=== PATIENT | male | born 1965 | race Caucasian/White ===

== ENCOUNTER → 2023-04-23 10:20 | Outpatient (CLI) | payer OTHER, SELFPAY ==
--- NOTE | ~2023-04-23 | MR_ITS ---
MRI of the right knee Clinical history: Pain Technique: Coronal proton density and proton density-weighted images, sagittal proton-density and T2 fat-sat images, and axial proton-density fat-saturated images were acquired. Findings: There is evidence of prior ACL reconstruction surgery. ACL graft is somewhat poorly delinea get, though probably intact. Posterior cruciate ligament is intact. Medial collateral ligament and th e lateral collateral ligament complex are intact. Popliteus tendon is intact. There is complex, predominantly horizontal tearing of the posterior horn and body of the medial menis cus. No definite lateral meniscal tear seen. There is prominent intrasubstance degenerative signal in the anterior horn of the lateral meniscus. There is patchy mild to moderate chondromalacia throughout the patellofemoral compartment. There is m ild to moderate chondromalacia over the lateral femoral condyle. Small osteophytes are present at the patellofemoral compartment and lateral joint line. Extensor mechanism is intact. Minimal joint effusion present. No Canela's cyst. Impression: Complex, predominantly horizontal tearing of the posterior horn and body of the medial meniscus. Prior ACL reconstruction surgery. ACL graft is poorly delineated, but probably intact. Jihd-uc-[id number] degenerative change of the lateral and patellofemoral compartments. Reviewed, dictated and finalized at location [facility] Impression: Complex, predominantly horizontal tearing of the posterior horn and body of the medial meniscus. Prior ACL reconstruction surgery. ACL graft is poorly delineated, but probably intact. Tbcz-iw-yaezzgsa degenerative change of the lateral and patellofemoral compartm ents.
== END ==
PROVIDERS: PCP Nurse Practitioner Family; Visit Provider Nurse Practitioner Family
DX: S83.211A Bucket-handle tear of medial meniscus, current injury, right knee, initial encounter (principal); X58.XXXA Exposure to other specified factors, initial encounter; M17.11 Unilateral primary osteoarthritis, right knee
CPT/HCPCS: 73721

== ENCOUNTER 2024-10-09 12:55 | Outpatient (CLI) | payer OTHER, SELFPAY ==
--- NOTE | ~2024-10-09 | MR_ITS ---
EXAMINATION: MR knee RT wo con DATE: 10/09/2024 14:01 INDICATION: Right knee pain TECHNIQUE: Magnetic resonance imaging (MRI) of the right knee was performed without intravenous contr ast. Sequences included coronal PD-weighted FSE, coronal PD-weighted FS FSE, sagittal T2-weighted FS E, sagittal PD-weighted FS FSE and axial PD weighted fat saturated FSE. COMPARISON: None. FINDINGS: Medial compartment: Longitudinal horizontal tear extending to the inferior articular surface of the posterior body and po sterior horn of the medial meniscus. Shallow chondral ulceration along the anterior to central weight bearing medial femoral condyle. There is a superimposed deep chondral fissure along the lateral aspec t of the central weightbearing medial femoral condyle. Additional shallow chondral ulceration along t he medial tibial plateau. Lateral compartment: Lateral meniscus is normal. Deep chondral ulceration with small central subchondral osteophytes at th e anterior to central weightbearing lateral femoral condyle. Cartilage along the lateral tibial plate au is relatively preserved. Patellofemoral compartment: Additional deep chondral ulceration with small central subchondral osteophytes at the cephalad aspect of the trochlear groove and immediately adjacent portion of the medial and lateral trochlea. Additio nal deep chondral ulceration with a few also subchondral edema-like signal change extending centrally across the lateral trochlea. Shallow chondral ulceration with deeper fissuring but without degenerat gino subchondral changes at the inferior and lateral margins of the lateral patellar facet. Ligaments and tendons: Posterior cruciate ligament is normal. There is recurrent tear of the repaired anterior cruciate liga ment with no evident graft material extending between the femoral and tibial tunnels. The medial brenda ateral ligament and fibular collateral ligament complex are normal. The extensor mechanism is normal. The visualized medial and lateral hamstring tendons as well as the iliotibial band are normal. Fluid: Small knee joint effusion at the suprapatellar pouch. No loose osteochondral bodies identified. Osseous/other: Bone alignment is normal. Small to moderate size marginal osteophytes in all 3 compartments of the kn ee. No fracture or pathologic marrow replacing process. IMPRESSION: 1. 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 2. Longitudinal horizontal tear of the posterior body and posterior horn of the medial meniscus. 3. 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 4. Small right knee joint effusion. Reviewed, dictated and finalized at [facility]. IMPRESSION: 1. Recurrent complete graft tear of a prior anterior cruciate ligament reconstr uction. 2. Longitudinal horizontal tear of the posterior body and posterior horn of the medial meniscus. 3. Mild tricompartmental osteoarthritis with extensive high-grade chondral matty barb in the patellofemoral compartment, small amount of high-grade chondral matty barb the lateral compartment and moderate grade chondral malacia the medial comp artment. 4. Small right knee joint effusion.
--- NOTE | ~2024-10-09 | MR_ITS ---
MRI of the lumbar spine Clinical History: Radiculopathy Technique: Axial T2-weighted images, and sagittal T1-weighted, T2-weighted, and T2 fat-sat images wer e acquired. Findings: There is interbody fusion at the L4-L5 disc space with associated susceptibility artifact. No acute fracture or subluxation seen. No suspicious bone marrow signal abnormality seen. At L1-L2, there is mild degenerative disc narrowing with minimal disc bulge and moderate facet arthro melchor. No central canal stenosis or neural foraminal narrowing. At L2-L3, there is mild degenerative disc narrowing with minimal disc bulge and advanced facet arthro melchor. No central canal stenosis. There is mild right neural foraminal narrowing. Left neural foramen preserved. L3-L4, there is severe degenerative disc narrowing. There is severe facet arthropathy. No central can al stenosis. There is severe right neural foraminal narrowing, and mild to moderate left neural kwame inal narrowing. At L4-L5, there is extensive susceptibility artifact with moderate facet arthropathy. No definite can al stenosis. Neural foramina are poorly evaluated. At L5-S1, there is no disc bulge or herniation. There is mild facet arthropathy. No central canal tom nosis or neural foraminal narrowing. Paravertebral soft tissues are otherwise unremarkable. Impression: Postoperative change at the L4-L5 disc space. Advanced degenerative spondylosis at L3-L4, as above. Reviewed, dictated and finalized at [facility]. Impression: Postoperative change at the L4-L5 disc space. Advanced degenerative spondylosis at L3-L4, as above.
--- OUTSIDE RECORDS SUMMARY | 2024-10-09 14:11 | XMS_ITS ---
Author Organization [facility] Address [address] [place] [address] Care Team Providers Care Kaitara Taraka Name Role Phone Lucinda nIiguezsa Primary Care Provider Jayson Jiménez Unavailable [phone] Ramila Hunt Unavailable [phone] ALLERGIES No Known Allergies RESULTS Component Value Reference Range Notes X ray : Lumbar spine 5 views , AP, Lateral, Spot, Flexion and Extension Reviewed date:11/29/2023 02:51:03 PM Interpretation:155 Performing Lab: Notes/Report: 155 REASON FOR REFERRAL Reason Eval adn Treat Lumba r Stabilization Program, Focus on HEP of lumbar and abdominal strengthening Diagnosis 1 Encounter for other specified aftercare (Z51.89) Referral Organization [facility], Referring Provider First Name Ramila Referring Provider Last Name Gilbert Referring Provider Speciality Nurse Prac titioner Referred Provider Specialty Physical The rapy Referral Priority Routine REASON FOR VISIT 2nd post op Activ-L MEDICATIONS Medication SIG (Take, Route, Frequency, Duration) Notes Start Date End Date Status Ibuprofen Unknown Ibuprofen 800 MG 1 tablet with food o r milk as needed Orally Three times a day for 30 days 09/12/2023 Not-Taking Percocet 5-325 MG 1 tablet as needed Orally every 4 hrs for 7 days 09/12/2023 Not-Taking HYDROcodone-Acetaminophen 5-325 MG 1 tablet as needed Orally every 4-6 hrs 06/22/2023 Not-Taking Aspirin Unknown Methocarbamol Unknow n Medrol 4 MG as directed Orally take as directed 05/19/2020 Unknown Tylenol Active Celecoxib 200 MG 1 capsule with food Orally Once a day for 30 day(s) 07/05/2023 Not-Taking Encounters Encounter Location Date Provider Diagnosis [facility] [address] [place] [address] 11/29/2023 Ramila Hunt Other low back pain M54.59 and Orthopedic aftercare Z47.89 ASSESSMENTS Encounter Date Diagnosis Assessment Notes Treatment Notes Treatment Clinical Notes 11/29/2023 Other low back pain (ICD-10 - M54.59) 11/29/2023 Orthopedic aftercare (ICD-10 - Z47.89) PLAN OF TREATMENT Referrals Referral Date Details Radha arvizu Treat Lumba r Stabilization Program, Focus on HEP of lumbar and abdominal strengthening Progress Notes * Examination Category Sub-Category Detail Notes X-Ray LUMBAR X-RAY: Five views of th e lumbar spine were obtained today. They demonstrate the disc arthroplasty from L4 to 5 that appears to be in good position and without any signs of subsidence Consultation Request Notes Referral Date Referring Provider Referred Provider Not es 11/29/2023 Ramila Hunt Eval adn Treat Lumbar Stabilization Program, Focus on HEP of lumbar and abdominal strengthening
--- OUTSIDE RECORDS SUMMARY | 2024-10-09 14:11 | XMS_ITS | Clinical Summary ---
Author Organization [facility] Address [address], [facility] [address] [place] [address] Phone Care Team Providers Care Seo Intern Name Role Phone Provider, Unknown Primary Care Provider Unavaila Steve Lew MD Unavailable [phone] Allergies No known active allergies Medications aspirin EC 81 MG Tablet Delayed Response Take 81 mg by mouth. Active oxyCODONE-acetam inophen (PERCOCET) 5-325 MG Tablet TAKE 1 TABLET BY MOUTH EVERY 4 HOURS NEEDED FOR 7 DAYS 09/12/2023 Active ibuprofen (MOTRIN) 800 MG Tablet TAKE 1 TABLET BY MOUTH THREE TIMES A DAY WITH FOOD OR MILK NEEDED FOR 30 DAYS 09/12/2023 Active Sennosides (SENNA LAX PO) Take by mouth. Active Active Problems No known active problems Family History Medical History Relation Name Comments Heart Disease Mother Breast Cancer Sister 2 Relation Name Status Comments Brother Alive Father Alive Mother Sister 1 Sister 2 Alive Social History Tobacco Use Types Packs/Day Years Used Date Smoking Tobacco: Never Smokeless Tobacco: Current Chew Tobacco Cessation:Ready to Q uit: Not Asked; Counseling Given: Not Answered Alcohol Use Standard Drinks/Week Comments Yes 12 (1 standard drink = 0.6 oz pu re alcohol) Sex and Gender Information Value Date Recorded Sex Assigned at Not on file Legal Sex Male 2:26 PM CDT Gender Identity Not on file Sexual Orientation Not on file Last Filed Vital Signs Vital Sign Reading Time Taken Comments Blood Pressure 142/90 03/20/2024 8:30 AM CDT Pulse 78 03/20/2024 8:30 AM CDT Temperature 36.2 C (97.1 F) 03/20/2024 8:30 AM CDT Respiratory Rate 18 03/20/2024 8:30 AM CDT Oxygen Saturation 99% 03/20/2024 8:30 AM CDT Inhaled Oxygen Concentration - - Weight 132.7 kg (292 lb 9.6 oz) 03/20/2024 8:30 AM CDT Height 188 cm (6' 2 ) 03/20/2024 8:30 AM CDT Body Mass Index 37.57 03/20/2024 8:30 AM CDT Plan of Treatment Upcoming Encounters Date Type Department Care Team (Late st Contact Info) Description 03/19/2025 8:45 AM CDT Office Visit [facility] [address] [facility] [address] [place] [address] Steve Cid MD [address] [place] [address] Health Maintenance Due Date Last Done Comments Hepatitis C Virus (HCV) Screening 1967 Hepatitis B Immunization (1 of 3 - 19+ 3-dose series) 1986 Colonoscopy 2012 Colorectal Cancer Screening 2012 Cologuard 2017 Immunochemical Fecal Occult Blood 2017 Pneumococcal Immunization (5 0+ years) (1 of 1 - PCV) 2017 PSA Discussion 2022 Influenza Immunization (#1) 2024 03/08/2020 SARS-COV-2 Immunization (2 - season) 2024 09/01/2020 Respiratory Syncytial Virus (RSV) Immunization (Adult) (1 - 1-dose 75+ series) 2042 DTaP/Tdap/Td Immunization Discontinued 11/17/2019 TdaP Immunization Completed 11/17/2019 Zoster Immunization Completed 05/10/2020, 03/08/2020 Meningococcal Immunization (ACWY) Aged Out No longer eligible based on patient's age to complete this topic Rotavirus Immunization Aged Out No lo nger eligible based on patient's age to complete this topic Insurance Care Teams Seo Intern Relationship Specialty Start Date End Date Provider, Unknown UNKNOWN PCP - General 09/20/22 Steve Cid MD [address] [place] [address] Consulting Physician Oncology 06/27/23
--- OUTSIDE RECORDS SUMMARY | 2024-10-09 14:11 | XMS_ITS | Clinical Summary ---
Author Organization [facility] Address [address] [place] [address] Care Team Providers Care Card Seller Name Role Phone Allie Madsen Roosevelt CAIN-PATHOLOGY LABORATORY AIDES TEACHER Primary Care Provider Source Comments [facility],non-owned Affiliates and Associated Physician Practices is amultiple site organization consisting of ambulatory clinics and hospital sitesin [place], [place], [place] and [place]. This disclosure is being madepursuant to the Care Everywhere program and may not contain all information available regarding this patient. Last updated 18.[facility] Allergies No known active allergies Medications * Be aware that medications may not be up to date on this document. Alwaysverify current medications with the patient. aspirin EC (Ecotrin) 81 MG tablet Take 1 (one) tablet by mouth once daily Active Active Problems No known active problems Social History Tobacco Use Types Packs/Day Years Used Date Smoking Tobacco: Former Cigarettes Q uit: 06/17/1999 Smokeless Tobacco: Current Chew Tobacco Cessation:Ready to Q uit: No; Counseling Given: No Alcohol Use Standard Drinks/Week Comments Not Currently 0 (1 standard drink = 0.6 oz pure alcohol) not since 08/2022 as of 04/26/2023 Sex and Gender Information Value Date Recorded Sex Assigned at Not on file Legal Sex Male 4:55 AM GENETIC SUPERVISOR Gender Identity Male 04/26/2023 1:36 PM GENETIC SUPERVISOR Sexual Orientation Not on file Last Filed Vital Signs Vital Sign Reading Time Taken Comments Blood Pressure - - Pulse - - Temperature - - Respiratory Rate - - Oxygen Saturation - - Inhaled Oxygen Concentration - - Weight 122.5 kg (270 lb) 10/02/2023 12:48 PM CDT Height 188 cm (6' 2 ) 10/02/2023 12:48 PM CDT Body Mass Index 34.67 10/02/2023 12:48 PM CDT Plan of Treatment Health Maintenance Due Date Last Done Comments COLOGUARD (AGES 45-75) - COL ON CA SCREENING 1967 COLON MONITORING 1967 COLONOSCOPY - COLON CA SCREENING 1967 CT COLONOGRAPHY - COLON CA SCREENING 1967 Colorectal Cancer Screening 1967 FIT - COLON CA SCREENING 1967 FLEX SIG - COLON CA SCREENING 1967 LIPID TESTING 1967 HIV SCREENING 1982 HEPATITIS C SCREENING 06/04/1985 DTAP/TDAP/TD VACCINES (1 - Tdap) 1986 HEPATITIS B VACCINE (1 of 3 - 19+ 3-dose series) 1986 PNEUMOCOCCAL VACCINE 50+ (1 of 1 - PCV) 2017 ZOSTER VACCINE (1 of 2) 2017 SCREENING FOR DIABETES 04/26/2023 COVID-19 VACCINE (2 - 2023-2 5 season) 2024 09/01/2020 DEPRESSION SCREENING 06/18/2024 INFLUENZA VACCINE (Season Ended) 2025 03/08/20 20 HIB VACCINE Aged Out No longer eligi ble based on patient's age to complete this topic HPV VACCINE Aged Out No longer eligi ble based on patient's age to complete this topic MENINGOCOCCAL (Group B) VACC INE SHARED DECISION-MAKING Aged Out No longer eligibl e based on patient's age to complete this topic MENINGOCOCCAL GROUPS A/C/Y/W VACCINE Aged Out No longer eligible b ased on patient's age to complete this topic Insurance [facility] Care Teams Card Seller Relationship Specialty Start Date End Date Allie Madsen APRN-PATHOLOGY LABORATORY AIDES TEACHER [address] [place] [address] PCP - General Nurse Practitioner 04/26/23
--- OUTSIDE RECORDS SUMMARY | 2024-10-09 14:11 | XMS_ITS | Clinical Summary ---
Author Organization [facility] Address [address] [place] [address] Care Team Providers Care Macroeconomics Professor Name Role Phone Allie Madsen SERGIO Primary Care Provider Allergies No known active allergies Medications aspirin EC (ECOTRIN) 81 MG tablet Take 1 tablet (81 mg total) by mouth daily. Active acetaminophen 500 MG tablet Take 500 mg by mouth every 6 (six) hours as needed for Pain. Active Lido-Capsaicin- Men-Methyl Tristan (VOUE-EBEQT-JEZ OCAINE) 0.5-0.035-5-20 % PatchIndication s:Closed fracture of one rib of right side, sequela Apply 1 patch topically every 12 (twelve) hours. 30 patch 0 Active Additional Information Patient not taking.Reported on 09/14/2022 rivaroxaban (XARELTO) 20 MG Tab tabletIndicatio ns:Acute deep vein thrombosis (DVT) of popliteal vein of left lower extremity (CMS/HCC HHS/HCC) Take 1 tablet (20 mg total) by mouth daily with supper. 30 tablet 1 3 Active Active Problems Problem Noted Date Diagnosed Date Arthritis of left knee 12/29/2019 Low back pain 12/17/2019 Left knee pain 12/17/2019 Tinea pedis, right 01/05/2017 Onychomycosis 01/05/2017 Resolved Problems Problem Noted Date Diagnosed Date Resolved Date Screening for deficiency anemia 01/05/2017 02/27/2020 Immunizations Immunization Administration Dates Next Due Influenza Adult (Generic) 03/08/2020 [employer] ([employer]IRA [employer] SHIRA) COVID-19 AD26 VACCINE 0.5 ML IM SUSP 09/01/2020 Shingrix 05/10/2020,03/08/2020 Tdap (Adacel) 11/17/2019 Zoster (Zostavax) 01067 Unt/0.65Ml 05/10/2020, Family History * Patient is adopted Medical History Relation Comments No Known Problems Brother No Known Problems Father No Known Problems Maternal Aunt No Known Problems Maternal Grandfather No Known Problems Maternal Grandmother No Known Problems Maternal Uncle No Known Problems Mother No Known Problems Paternal Aunt No Known Problems Paternal Grandfather No Known Problems Paternal Grandmother No Known Problems Paternal Uncle No Known Problems Sister Relation Status Comments Brother Father Maternal Aunt Maternal Grandfather Maternal Grandmother Maternal Uncle Mother Paternal Aunt Paternal Grandfather Paternal Grandmother Paternal Uncle Sister Social History Tobacco Use Types Packs/Day Years Used Date Smoking Tobacco: Never Smokeless Tobacco: Current Chew Tobacco Cessation:Ready to Q uit: No; Counseling Given: No Alcohol Use Standard Drinks/Week Comments Yes 0 (1 standard drink = 0.6 oz pur e alcohol) Sex and Gender Information Value Date Recorded Sex Assigned at Not on file Legal Sex Male 4:48 PM CDT Gender Identity Not on file Sexual Orientation Not on file Last Filed Vital Signs Vital Sign Reading Time Taken Comments Blood Pressure 130/82 09/14/2022 11:35 AM CDT ma nual Pulse 82 09/14/2022 11:06 AM CDT Temperature 36.6 C (97.8 F) 09/14/2022 11:02 AM CDT Respiratory Rate 20 09/14/2022 11:02 AM CDT Oxygen Saturation 98% 09/14/2022 11:02 AM CDT Inhaled Oxygen Concentration - - Weight 131.5 kg (290 lb) 09/14/2022 11:02 AM CDT Height 185.4 cm (6' 1 ) 09/14/2022 11:02 AM CDT Body Mass Index 38.26 09/14/2022 11:02 AM CDT Plan of Treatment Health Maintenance Due Date Last Done Comments Colorectal Cancer Screening Colonoscopy (10 Years) 1967 Annual Physical 1970 Hepatitis C 1985 Hepatitis B Vaccines (1 of 3 - 19+ 3-dose series) 1986 Pneumococcal Vaccine: 50+ Years (1 of 1 - PCV) 2017 Zoster Vaccines (3 of 3) 07/05/2020 020, 05/10/2020, 03/08/2020, Additional history exists COVID-19 Vaccine (2 - 2023- season) 2024 09/01/2020 PHQ-2 (Physician Elizabeth) 06/18/2024 DTaP, Tdap and Td Vaccines (2 - Td or Tdap) 11/16/2029 11/17/2019 Meningococcal B Vaccine Aged Out No l onger eligible based on patient's age to complete this topic Meningococcal Vaccine Aged Out No pita brandon eligible based on patient's age to complete this topic RSV Immunizations Under 20 Months Aged Out No longer eligible based on patient's age to complete this topic Insurance [facility] App Partner [employer] on file Advance Directives Documents on File Type Date Recorded Patient Commercial Fishing Vessel Operator Expl anation Legal Documents 03/28/2022 3:15 PM COMPLE KRANTHI MOTION PICTURE ACTOR REQUEST [facility] BILLING Care Teams Macroeconomics Professor Relationship Specialty Start Date End Date Allie Madsen FNP [address] [place] [id number] PCP - General Nurse Practitioner Family 06/20/23
--- OUTSIDE RECORDS SUMMARY | 2024-10-09 14:12 | XMS_ITS | Patient Health Record ---
Author Organization [facility] Address [address] [place] [address] Care Team Providers Care Chip Applying Machine Tender Name Role Phone Allie Iniguez Primary Care Provider Jayson Jiménez Unavailable [phone] Ramila Hunt Unavailable [phone] ALLERGIES No Known Allergies RESULTS Component Value [...] specified aftercare (Z51.89) Referral Organization [facility] Referring Provider First Name Ramila Referring Provider Last Name Gilbert Referring Provider Speciality Nurse Prac titioner Referred Provider Specialty Physical The rapy Referral Priority Routine MEDICATIONS Medication SIG (Take, Route, Frequency, Duration) Notes Start Date End Date Status Ibuprofen Unknown Methocarbamol Unknow n Medrol 4 MG as directed Orally take as directed 05/19/2020 Unknown Ibuprofen 800 MG 1 tablet with food o r milk as needed Orally Three times a day for 30 days 09/12/2023 Not-Taking Percocet 5-325 MG 1 tablet as needed Orally every 4 hrs for 7 days 09/12/2023 Not-Taking HYDROcodone-Acetaminophen 5-325 MG 1 tablet as needed Orally every 4-6 hrs 06/22/2023 Not-Taking Aspirin Unknown Tylenol Active Celecoxib 200 MG 1 capsule with food Orally Once a day for 30 day(s) 07/05/2023 Not-Taking PROBLEMS Problem Type ICD Code Onset Dates Problem Status W/U Status Risk SNOMED Code Notes Problem Lumbar spondylosis (M47.816) Active confirmed Lumbar spondylosis (965292262) Problem Other intervertebral disc degeneration, lumbar region (M51.36) Active confirmed Degeneration of lumbar intervertebral disc (81916621) Problem Osteoporosis (M81.0) Active confirmed Osteoporosis (94294524) Problem Degeneration of intervertebral disc of lumbosacral region (M51.37) Active confirmed Degeneration of lumbosacral intervertebral disc (71731151) Problem Herniated lumbar intervertebral disc (M51.26) Active confirmed Displacement o f lumbar intervertebral disc without myelopathy (45314179) Problem DDD (degenerative disc disease), lumbar (M51.36) Active confirmed Degenerative disc disease (03957137) Problem Other spontaneous disruption of anterior cruciate ligament of right knee (M23.611) Active confirmed Problem Orthopedic aftercare (Z47.89) Active confirmed Problem Aftercare following joint replacement (Z47.1) Active confirmed Aftercare (155553188) Problem Presence of other orthopedic joint implants (Z96.698) Active confirmed Joint implant i n situ (finding) (092440583) Encounters Encounter Location Date Provider Diagnosis [facility] [address] [address] 11/29/2023 Ramila Hunt Other low back pain M54.59 and Orthopedic aftercare Z47.89 [facility] [address] [address] 12/17/2023 Jayson Bruno ASSESSMENTS Encounter Date Diagnosis Assessment Notes Treatment Notes Treatment Clinical Notes 11/29/2023 Other low back pain (ICD-10 - M54.59) 11/29/2023 Orthopedic aftercare (ICD-10 - Z47.89) PLAN OF TREATMENT No Information Insurance Providers Payer Name Payer Address Payer Phone Subscriber Number Group Number Insured Name Patient Relationship to Insured Coverage Start Date Coverage End Date Vanesa [id number] Jese Quiroz Self - patient is the insured [facility] [id number] DARSHAN Farias [id number] Jese Quiroz Self - patient is the insured [facility] [address] [address] [place] [address] [id number] Jese Quiroz Self - patient is the insured [employer] [address] [place] [address] [id number] Jese Quiroz Self - patient is the insured 3 MEDICAL (GENERAL) HISTORY Medical History History ICD Code Arthritis Blood clot Surgical History Surgery Date(Month/Year) Left Inguinal Hernia Repair Umbilical hernia Right Knee Surgery x 2 Left CTR Left Elbow Right knee arthroscopy, part ial medial and lateral meniscectomies, synovectomy, abrasion chondroplasty - MDC 06/28/23 L4-5 Disc Arthroplasty 09/13/23 Hospitalization History Reason Date(Month/Year) As per above.
--- OUTSIDE RECORDS SUMMARY | 2024-10-09 14:12 | XMS_ITS ---
Author Organization [facility] Address [address] [facility] [address] [place] [address] Care Team Providers Care Screen Making Supervisor Name Role Phone Allie Iniguez Primary Care Provider Jayson Jiménez Unavailable [phone] REASON FOR VISIT Physical Therapy Script Encounters Encounter Location Date Provider Diagnosis [facility] [address] [facility] [address] [place] [address] 12/17/2023 Jayson Bruno PLAN OF TREATMENT No Information
--- OUTSIDE RECORDS SUMMARY | 2024-10-09 14:13 | XMS_ITS ---
Author Organization [facility] Address [address] [place] [address] Care Team Providers Care General Road Production Manager Name Role Phone Lucinda Iniguezsa Primary Care Provider Jayson Jiménez Unavailable [phone] Ramila Hunt Unavailable [phone] ALLERGIES No Known Allergies RESULTS Component Value Reference Range Notes X ray : Lumbar spine 5 views , AP, Lateral, Spot, Flexion and Extension Reviewed date:09/27/2023 02:04:41 PM Interpretation:115 Performing Lab: Notes/Report: 115 REASON FOR VISIT 1st post op Activ-l MEDICATIONS Medication SIG (Take, Route, Frequency, Duration) Notes Start Date End Date Status Medrol 4 MG as directed Orally take as directed 05/19/2020 Unknown Methocarbamol Unknow n Aspirin Unknown Ibuprofen Unknown HYDROcodone-Acetaminophen 5-325 MG 1 tablet as needed Orally every 4-6 hrs 06/22/2023 Not-Taking Celecoxib 200 MG 1 capsule with food Orally Once a day for 30 day(s) 07/05/2023 Active Ibuprofen 800 MG 1 tablet with food o r milk as needed Orally Three times a day for 30 days 09/12/2023 Active Tylenol Active Percocet 5-325 MG 1 tablet as needed Orally every 4 hrs for 7 days 09/12/2023 Not-Taking PROBLEMS Problem Type ICD Code Onset Dates Problem Status W/U Status Risk SNOMED Code Notes Problem Orthopedic aftercare (Z47.89) Active confirmed Problem Aftercare following joint replacement (Z47.1) Active confirmed Aftercare (127085134) Problem Presence of other orthopedic joint implants (Z96.698) Active confirmed Joint implant in situ (finding) (636822679) Encounters Encounter Location Date Provider Diagnosis [facility] [address] [place] [address] 09/27/2023 Ramila Mathewolivier Orthopedic aftercare Z47.89 ; Aftercare following joint replacement Z47.1 ; Presence of other orthopedic joint implants Z96.698 and Other low back pain M54.59 ASSESSMENTS Encounter Date Diagnosis Assessment Notes Treatment Notes Treatment Clinical Notes 09/27/2023 Orthopedic aftercare (ICD-10 - Z47.89) 09/27/2023 Aftercare following joint replacement (ICD-10 - Z47.1) 09/27/2023 Presence of other orthopedic joint implants (ICD-10 - Z96.698) 09/27/2023 Other low back pain (ICD-10 - M54.59) PLAN OF TREATMENT No Information Progress Notes * Examination Category Sub-Category Detail Notes X-Ray LUMBAR X-RAY: Five views of th e lumbar spine were obtained today. They demonstrate disc arthroplasty from L4 to 5 that appears to be in good position and without any signs of subsidence
== END 2024-10-09 12:56 | disposition home or self-care (01) ==
PROVIDERS: PCP Nurse Practitioner Family; Visit Provider Nurse Practitioner Family
DX: M47.816 Spondylosis without myelopathy or radiculopathy, lumbar region (principal); Z98.1 Arthrodesis status
CPT/HCPCS: 72148; 73721